=== PATIENT | male | born 1950 | race Caucasian/White ===

== ENCOUNTER 2017-08-01 12:49 | Outpatient (CLI) | payer MEDICARE, OTHER ==
[2015-08-21 20:21] VITALS: BP 150/75
[2017-08-01 13:05] LABS: BASOPHILS % 0.6 (0.0-1.5); EOSINOPHILS % 2.9 % (0.0-6.8); MEAN CORPUSCULAR HEMOGLOBIN 29.8 pg (28.0-34.0); MEAN CORPUSCULAR VOLUME 88.5 fl (80.0-100.0); MONOCYTES % 5.1 % (0.0-11.0); NEUTROPHILS # 4.2 # k/uL (1.4-7.7)
[2017-08-01 13:08] LABS: APPEARANCE,URINE Clear (CLEAR); COLOR,URINE Yellow (YELLOW); OCCULT BLOOD,URINE 2+ (NEGATIVE)
[2017-08-01 23:11] LABS: TOTAL PROTEIN 6.5 g/dL (6.0-8.5)
== END 2017-08-01 12:50 ==
LOC: LAB 12:49
PROVIDERS: ATTEND Nurse Practitioner
DX: R26.9 Unspecified abnormalities of gait and mobility (principal); R32 Unspecified urinary incontinence
CPT/HCPCS: 36415; 80053; 81002; 85025

== ENCOUNTER 2018-03-06 15:38 | Outpatient (CLI) | payer MEDICARE, OTHER ==
[2015-08-21 20:21] VITALS: BP 150/75
[2018-03-06 16:06] LABS: BASOPHILS % 0.2 (0.0-1.5); EOSINOPHILS % 1.5 % (0.0-6.8); MEAN CORPUSCULAR HEMOGLOBIN 30.3 pg (28.0-34.0); MEAN CORPUSCULAR VOLUME 91.6 fl (80.0-100.0); MONOCYTES % 3.6 % (0.0-11.0); NEUTROPHILS # 6.4 # k/uL (1.4-7.7)
[2018-03-06 16:24] LABS: eGFR (African) > 60; eGFR (Non-African) > 60
[2018-03-07 08:12] LABS: APPEARANCE,URINE Clear (CLEAR); COLOR,URINE Yellow (YELLOW); OCCULT BLOOD,URINE Negative (NEGATIVE)
== END 2018-03-06 15:40 ==
LOC: LAB 15:38
PROVIDERS: ATTEND Family Medicine
DX: Z51.81 Encounter for therapeutic drug level monitoring (principal); R39.11 Hesitancy of micturition
CPT/HCPCS: 36415; 80053; 81002; 85025

== ENCOUNTER 2018-04-10 11:53 | Emergency (ER) | payer MEDICARE, OTHER ==
[2018-04-10 12:12] VITALS: BP 94/47
--- NOTE | 2018-04-10 12:29 | ED Physician Documentation ---
General Adult - HISTORIAN Historian: patient, spouse - HPI Stated Complaint: Bilat LE Swelling Chief Complaint: General Adult Onset: other (weeks) Timing: still present Severity: moderate Further Comments: yes (Pt is a 68 yo male with Parkinson's dz with c/o b/l LE edema for 3 weeks. Pt also has been having loose bm's and some abd bloating but no significant abd pain or n/v. No fever. Pt had been seen in clinic and at [facility] recently about leg swelling and was rx'd po lasix which did not seem to help to much, and so the pt stopped taking it. Pt had also been using oxybutynin 5 mg tid, but recently had this reduced to qd.) - ROS CONST: weakness EYES/ENT: none CVS/RESP: none GI/: diarrhea, other (abd bloating) MS/SKIN/LYMPH: leg swelling - PAST HX Past History: other (Parkinson's dz) Allergies/Adverse Reactions: Allergies Allergy/AdvReac Type Severity Reaction Status Date / Time Penicillins Allergy Verified 04/10/18 12:04 Home Medications: Ambulatory Orders Medication Instructions Recorded Ropinirole HCl [Requip] 10 mg PO D 08/21/15 Carbidopa/Levodopa [Carbidopa-Levo 2 each PO QID u2 03/06/18 25-100 Mg Odt] Rasagiline Mesylate [Azilect] 1 mg PO DAILY u2 03/06/18 - SOCIAL HX Smoking History: non-smoker - FAMILY HX Family History: No - VITAL SIGNS Vital Signs: Vital Signs Temp Pulse Resp BP Pulse Ox 98.5 F 67 17 94/47 99 04/10/18 11:55 04/10/18 11:55 04/10/18 11:55 04/10/18 11:55 04/10/18 11:55 - REVIEWED ASSESSMENTS Nursing Assessment Reviewed: Yes Vitals Reviewed: Yes Progress - Progress Progress: NS 500 cc IVF Lasix 20 mg IV abd x-ray: Findings: 2 views obtained of the abdomen. No abnormal dilation of the small bowel. Air and stool throughout the large bowel. No suspicious calcification projecting over the renal fossa or the lower pelvic region. Osseous structures are appropriate for age. Impression: Significant large bowel stool and air. No suspicious calcifications by plain film sensitivity. Lasix 20 mg IV support hose, laxative, f/u pcp (pt has appt in 2 days). ED Results Lab/Radiology - Orders Orders: ED Orders Category Date Time Status Place IV Lock 1T Care 04/10/18 12:20 Active ABDOMEN 1VIEW [RAD] Stat Exams 04/10/18 Ordered BNP [NT-proBNP] Stat Lab 04/10/18 Ordered CBC/PLATELET/DIFF Routine Lab 04/10/18 Ordered CMP Routine Lab 04/10/18 Ordered UA [URINALYSIS] Routine Lab 04/10/18 Ordered General Adult Physical Exam - PHYSICAL EXAM GENERAL APPEARANCE: mild distress EENT: pharynx normal NECK: normal inspection, supple RESPIRATORY: no resp distress, chest non-tender, breath sounds normal CVS: reg rate & rhythm, heart sounds normal ABDOMEN: soft, non-tender, decreased BS BACK: normal inspection, no CVA tenderness SKIN: warm/dry, normal color EXTREMITIES: edema (2+ LE) NEURO: oriented X3, sensation nml, other (Parkinson's) Discharge Clincal Impression: Leg edema, dehydration Constipation Qualifiers: Constipation type: unspecified constipation type Qualified Code(s): K59.00 - Constipation, unspecified Referrals: Parish Salvador [Primary Care Provider] - Condition: Stable Disposition: 01 HOME, SELF-CARE Decision to Admit: NO Decision Time: 14:30
[2018-04-10 12:37] LABS: BASOPHILS % 0.3 (0.0-1.5); EOSINOPHILS % 0.9 % (0.0-6.8); MEAN CORPUSCULAR HEMOGLOBIN 29.9 pg (28.0-34.0); MEAN CORPUSCULAR VOLUME 92.3 fl (80.0-100.0); NEUTROPHILS # 5.1 # k/uL (1.4-7.7)
[2018-04-10 12:53] LABS: eGFR (African) > 60; eGFR (Non-African) > 60
[2018-04-10] MEDS: 0.9 % SODIUM CHLORIDE 500 ML IV ONE (13:25)
[2018-04-10] MEDS: FUROSEMIDE 20 MG/2 ML VIAL ONE (13:25)
[2018-04-10] MEDS: FUROSEMIDE 20 MG/2 ML VIAL IVP ONE ×2 (13:30→14:31)
[2018-04-10 16:10] LABS: APPEARANCE,URINE CLEAR (CLEAR); COLOR,URINE AMBER (YELLOW); OCCULT BLOOD,URINE TRACE-INTACT (NEGATIVE); PH URINE 5.5 (5.0 - 8.0)
--- NOTE | 2018-04-10 17:36 | Diagnostic Imaging Report ---
HERSON ANDERSON [facility] [address] [facility] [address] [place] [address]. [id number] Report Submission Date: April 10, 2018 1:56:51 PM CDT Patient Study Name: WILBERTO ALEJANDRE Date: April 10, 2018 1:14:45 PM CDT Modality Type: DX Gender: M Description: ABDOMEN : 54 Institution: [facility] Physician: HERSON ANDERSON Examination: Abdomen History: KUB, ABDOMINAL PAIN/ BLOATING, HX OF HERNIA SURGERY (Hx) Findings: 2 views obtained of the abdomen. No abnormal dilation of the small bowel. Air and stool throughout the large bowel. No suspicious calcification projecting over the renal fossa or the lower pelvic region. Osseous structures are appropriate for age. Impression: Significant large bowel stool and air. No suspicious calcifications by plain film sensitivity. Electronically signed on April 10, 2018 1:56:51 PM CDT by: Remy ALVES
== END 2018-04-10 14:35 | disposition home or self-care (01) ==
LOC: ED 11:53
DX: R60.0 Localized edema (principal); E86.0 Dehydration; K59.09 Other constipation
CPT/HCPCS: 74018; 80053; 81002; 83880; 85025; J1940; J7060; 96365; 96375; 99283; S1016

== ENCOUNTER 2018-05-13 09:25 | Day surgery (SDC) | payer MEDICARE, OTHER ==
[2018-05-13] MEDS ORDERED: PROPOFOL 200 MG/20 ML VIAL IV ONE (09:26)
[2018-05-13] MEDS ORDERED: LACTATED RINGERS 1,000 ML IV.SOLN IV ONE (09:26)
[2018-05-13] MEDS ORDERED: LIDOCAINE HCL/PF 2% 100 MG/5 ML VIAL IJ ONE (09:26)
--- NOTE | 2018-05-17 09:48 | GI Report ---
REFERRING PHYSICIAN: Dr. Kenny Miranda PSYCHOLOGICAL TESTS SALES AGENT: Paul Navarro MD PROCEDURE MEDICATION: Propofol as per anesthesia. INDICATIONS: This is a 68-year-old man with severe Parkinson's disease, difficulty passing stools, and a family history of colon cancer. He had polyps removed about [address] Augustin here. Patient was not sure how well he did with his prep. He is a chronically ill-appearing man. On examination, he does have a large ventral hernia and diastasis recti. He does have peripheral edema. A rectal exam was done and the patient has a hard-ball size impaction of stool in the rectum. I digitally broke it up into a number of pieces. The colonoscope was not even attempted because there was solid stool there. PROCEDURE PERFORMED: Colonoscopy attempt. FINDINGS: Large rectal impaction. No colonoscopy was attempted. It was digitally broken up. We will give him a Fleet enema and have him take MiraLAX twice daily and re-prep him for a colonoscopy later this month. RECOMMENDATIONS: We will give him a Fleet enema and see if we can clear that out and then keep him on MiraLAX twice daily and reschedule him for when we return to hopefully look at his colon at that point. cc: Dr. Kenny ALVES
== END 2018-05-13 09:26 ==
LOC: OPSURG 09:25
PROVIDERS: ATTEND Internal Medicine Gastroenterology
DX: K56.41 Fecal impaction (principal); G20 Parkinson's disease
CPT/HCPCS: 45378; J2001; J2704; J7120; S1016

== ENCOUNTER 2018-07-08 12:23 | Outpatient (CLI) | payer MEDICARE, OTHER ==
[2018-07-08 13:25] LABS: BASOPHILS % 0.3 (0.0-1.5); EOSINOPHILS % 0.8 % (0.0-6.8); MEAN CORPUSCULAR HEMOGLOBIN 30.7 pg (28.0-34.0); MONOCYTES % 3.6 % (0.0-11.0); NEUTROPHILS # 3.6 # k/uL (1.4-7.7)
[2018-07-08 13:26] LABS: eGFR (African) > 60; eGFR (Non-African) > 60
== END 2018-07-08 12:24 ==
LOC: LAB 12:23
PROVIDERS: ATTEND Family Medicine
DX: E88.09 Other disorders of plasma-protein metabolism, not elsewhere classified (principal); D63.8 Anemia in other chronic diseases classified elsewhere; R63.4 Abnormal weight loss; R06.09 Other forms of dyspnea; K59.00 Constipation, unspecified
CPT/HCPCS: 36415; 80053; 84443; 85025

== ENCOUNTER 2018-07-09 09:06 | Outpatient (CLI) | payer MEDICARE, OTHER ==
--- NOTE | 2018-07-09 13:38 | Diagnostic Imaging Report ---
ISABELLE AVILA [facility] [address] [facility] [address] [address] Report Submission Date: Jul 09, 2018 9:46:50 AM CDT Patient Study Name: WILBERTO ALEJANDRE Date: Jul 09, 2018 9:15:57 AM CDT Modality Type: DX Gender: M Description: CHEST : 54 Institution: [facility] Physician: ISABELLE AVILA Examination: PA and lateral chest. History: DYSPNEA ON EXERTION AND WEIGHT LOSS (Hx) Comparison exam: None provided. Findings: PA and lateral views of the chest demonstrates a normal cardiac and mediastinal silhouette. No focal infiltrate. No blunting of the costophrenic margins. Hilar granuloma. Osseous structures are appropriate for age. Impression: No acute pulmonary process. Electronically signed on Jul 09, 2018 9:46:50 AM CDT by: Remy ALVES
--- NOTE | 2018-07-09 16:30 | Diagnostic Imaging Report ---
ISABELLE AVILA [facility] [address] [facility] [address] [place] [address]. [address] Report Submission Date: Jul 09, 2018 2:04:13 PM CDT Patient Study Name: WILBERTO ALEJANDRE Date: Jul 09, 2018 10:02:29 AM CDT Modality Type: CT\SR Gender: M Description: CT ABD PELVIS W/ CON : 54 Institution: [facility] Physician: ISABELLE AVILA Examination: CT Abdomen/pelvis History: OBSTIPATION; 27 LB WEIGHT LOSS IN 4 MONTHS (Hx) Comparison exams: None available Technique: CT Abdomen/pelvis with IV protocol. Findings: Liver, spleen, adrenals, pancreas, and gallbladder are without gross irregularity. No abnormal enhancement. Left calyceal calcifications. Renal cortical and exophytic cysts bilaterally. Abdominal aorta demonstrates peripheral atherosclerotic disease. No aneurysm. Cardiac silhouette not enlarged. No pericardial effusion. Diffuse mesenteric stranding limiting bowel differentiation. Significant stool throughout the entire large bowel. Small bowel difficult to visualize but does not appear to be abnormally dilated. Likely lower pelvic free fluid. Pelvic phleboliths. Anterior abdominal wall surgical changes. Osseous structures demonstrate degenerative changes. Lung bases dentate dependent scarring and atelectasis. No effusion. Impression: Diffuse abdominal mesenteric stranding and likely free fluid. Significant large bowel stool - constipation. Given history, recommend dedicated bowel imaging to better evaluate. A mesenteric lesion/abnormality cannot be excluded. Correlation with any pertinent medical/ surgical history is recommended. If there still remains significant concern for neoplastic process, consider PET scan imaging to further evaluate. Left renal nephrolithiasis. Lung base scarring without focal consolidation or effusion Electronically signed on Jul 09, 2018 2:04:13 PM CDT by: Remy ALVES
== END 2018-07-09 09:08 ==
LOC: RAD 09:06
PROVIDERS: ATTEND Family Medicine
DX: R06.09 Other forms of dyspnea (principal); K59.00 Constipation, unspecified
CPT/HCPCS: 71046; 74177; Q9967

== ENCOUNTER 2019-09-05 11:43 | Emergency (ER) | payer MEDICARE, OTHER ==
--- NOTE | 2019-09-05 11:50 | ED Physician Documentation ---
General Adult - HISTORIAN Historian: patient - HPI Stated Complaint: weakness and fall a week ago with low back pain Chief Complaint: Weakness Onset: days ago (7) Timing: persistent since Severity: moderate Further Comments: yes (Per his he always is dealing with constipation. She notes a few days she noticed he had diarrhea and she feels this is due to his consitpation. She also states over a week ago he fell and has had complaints of low back and coccyx pain. She also is concerned about several other areas - ie skin areas were removed several weeks ago and she is concerned if they are doing ok. He has a history of Parkinson's and he does see neurology) - ROS CONST: no problems GI/: denies: abdominal pain, vomiting, nausea MS/SKIN/LYMPH: none NEURO/PSYCH: denies: headache, dizziness, difficulty with speech - PAST HX Past History: other (Parkinsons ) Immunizations: UTD Allergies/Adverse Reactions: Allergies Allergy/AdvReac Type Severity Reaction Status Date / Time Penicillins Allergy Verified 09/05/19 12:06 Home Medications: Ambulatory Orders Medication Instructions Recorded Ropinirole HCl [Requip] 10 mg PO D 08/21/15 Carbidopa/Levodopa [Carbidopa-Levo 2 each PO QID u2 03/06/18 25-100 Mg Odt] Rasagiline Mesylate [Azilect] 1 mg PO DAILY u2 03/06/18 - SOCIAL HX Smoking History: non-smoker - FAMILY HX Family History: No - VITAL SIGNS Vital Signs: Vital Signs Temp Pulse Resp BP Pulse Ox 94/47 04/10/18 14:35 - REVIEWED ASSESSMENTS Nursing Assessment Reviewed: Yes Vitals Reviewed: Yes Progress - Progress Progress: 1400: Discussed results and plan DG General Adult Physical Exam - PHYSICAL EXAM GENERAL APPEARANCE: no distress EENT: eye inspection normal, no signs of dehydration RESPIRATORY: no resp distress, chest non-tender, breath sounds normal CVS: reg rate & rhythm, heart sounds normal, no murmur ABDOMEN: abnormal bowel sounds (hypoactive ), distended. No: tenderness, guarding RECTAL: other (open area on coccyx 1 cm open area no drainage ) BACK: normal inspection SKIN: warm/dry, normal color EXTREMITIES: non-tender, normal range of motion, no evidence of injury, no edema NEURO: oriented X3 Discharge Clincal Impression: Constipation Qualifiers: Constipation type: other constipation type Qualified Code(s): K59.09 - Other constipation Referrals: Kenny Miranda MD [Primary Care Provider] - 2 Days Comments: 1. Call PCP and discuss med changes 2. Increase fluids and fiber 3. Mag Citrate 1/2 bottle now and 1/2 bottle in two hours if no results 4. Return to ER for any increased concerns Condition: Stable Disposition: 01 HOME, SELF-CARE Decision to Admit: NO Date of Decison to Admit: 09/05/19 Decision Time: 14:17
[2019-09-05] MEDS ORDERED: 0.9 % SODIUM CHLORIDE 1,000 ML IV ONE (12:06)
[2019-09-05 12:26] LABS: BASOPHILS % 0.3 % (0.0-1.5); NEUTROPHILS # 7.6 # k/uL (1.4-7.7)
[2019-09-05 12:44] LABS: eGFR (Non-African) > 60
--- NOTE | 2019-09-05 13:19 | Diagnostic Imaging Report ---
PATIENT MR#: [id number] PATIENT PATIENT NAME: WILBERTO ALEJANDRE DATE OF : 1950 REFERRING PHYSICIAN: Ramonita Ty EXAM DATE: 09/05/2019 ACCESSION NUMBER: [id number] EXAM DESCRIPTION: PELVIS AP 1 OR 2 VIEWS Indication: Pain status post fall one week ago. Technique: Single AP view of the pelvis was obtained. Comparison: None available. Findings: There is diffuse osteopenia. There is no fracture or dislocation of the pelvis. There is moderate joint space narrowing of the bilateral hips. There is a moderate amount of stool seen in the rectum which could represent constipation. Hernia repair material is seen over the left lower pelvis. There are no suspicious ra diopaque foreign bodies over the pelvis. Impression: Diffuse osteopenia with no fracture or dislocation seen of the pelvis. Read by: Dr. Reno Polanco Transcribed by: Reno Polanco Transcribed Date: 09/05/2019 1:17:17 PM Electronically signed by: Dr. Reno Polanco Date signed: 09/05/2019 1:18:33 PM
--- NOTE | 2019-09-05 13:20 | Diagnostic Imaging Report ---
PATIENT MR#: [id number] PATIENT PATIENT NAME: WILBERTO ALEJANDRE DATE OF : 1950 REFERRING PHYSICIAN: Ramonita Ty EXAM DATE: 09/05/2019 ACCESSION NUMBER: [id number] EXAM DESCRIPTION: ABD SERIES PA CHEST HISTORY: ALTERNATING CONSTIPATION X 1 WEEK AND DIARRHEA X 3 DAYS AFTER COMPARISON: CT abdomen July 01, 2018. CHEST AND ABDOMINAL XRAY, 4 FRONTAL VIEWS: Lungs: Calcified right hilar lymph node. The lung manriquez are clear. Bowel gas pattern: The transverse colon is moderately distended with gas. The ascending and descendin g colon are moderately distended with stool. There is a 10 cm rectal stool ball. No evidence of small bowel obstr uction. There is no free air beneath the diaphragms. Calcifications: No findings to suggest nephrolithiasis by x-ray sensitivity. Surgical changes: Left lower quadrant hernia repair coils. Skeleton: Intact. IMPRESSION: Moderate constipation / gassy distention of the proximal colon, with rectal stool impacti on, without evidence of small bowel obstruction at this time. Read by: Dr. Osvaldo Crowley Transcribed by: Osvaldo Crowley Transcribed Date: 09/05/2019 1:19:46 PM Electronically signed by: Dr. Osvaldo Crowley Date signed: 09/05/2019 1:19:46 PM
--- NOTE | 2019-09-05 13:24 | Diagnostic Imaging Report ---
PATIENT MR#: [id number] PATIENT PATIENT NAME: WILBERTO ALEJANDRE DATE OF : 1950 REFERRING PHYSICIAN: Ramonita Ty EXAM DATE: 09/05/2019 ACCESSION NUMBER: [id number] EXAM DESCRIPTION: L SPINE 2 OR 3 VIEWS Indication: Pain status post fall one week ago. Technique: 3 views of the lumbar spine were obtained. Comparison: None available. However, comparison was made to CT of the abdomen and pelvis dated 2017. Findings: There is diffuse osteopenia. The vertebral bodies of the lumbar spine demonstrate normal h eight and alignment. There is mild disc height loss seen at multiple levels in the lumbar spine. There is mil d facet arthrosis bilaterally at L4-5 and L5-S1. The paraspinal soft tissues demonstrate no acute abnormalities. Impression: Diffuse osteopenia with no fracture or acute abnormality of the lumbar spine. Read by: Dr. Reno Polanco Transcribed by: Reno Polanco Transcribed Date: 09/05/2019 1:23:37 PM Electronically signed by: Dr. Reno Polanco Date signed: 09/05/2019 1:24:19 PM
[2019-09-05 14:49] VITALS: BP 150/75
[2019-09-05 15:46] LABS: APPEARANCE,URINE CLOUDY (CLEAR); COLOR,URINE YELLOW (YELLOW); OCCULT BLOOD,URINE NEGATIVE (NEGATIVE); PH URINE 5.5 (5.0 - 8.0)
== END 2019-09-05 14:40 | disposition home or self-care (01) ==
LOC: ED 11:43
DX: K59.09 Other constipation (principal)
CPT/HCPCS: 51701; 72100; 72170; 74022; 80053; 81002; 85025; 96360; 99283; 99284; S1016

== ENCOUNTER 2019-09-13 17:20 | Observation (INO) | payer MEDICARE, OTHER ==
--- NOTE | 2019-09-13 18:03 | Diagnostic Imaging Report ---
PATIENT MR#: [id number] PATIENT PATIENT NAME: WILBERTO AELJANDRE DATE OF : 1950 REFERRING PHYSICIAN: Alesia Martinez EXAM DATE: 09/13/2019 ACCESSION NUMBER: [id number] EXAM DESCRIPTION: ABD SERIES PA CHEST Obstructive series with chest Clinical history and omental pain Technique supine abdomen upright abdomen upright chest Findings: The lung manriquez are clear. There is no free air. Dilated colonic loops extends in the pelvi s up to the hemidiaphragms raising the possibility of sigmoid volvulus versus low obstruction. Air fluid levels a re present in the right colon. CT is recommended. A large amount of retained fecal material is present in the lower col on. Hernia repair changes are notable left lower quadrant. 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 Thoracic aorta i s tortuous and are calcified right paratracheal lymph nodes Impression: No acute infiltrate. T . Dilated colonic loops with feces in the rectum. Considerations are fecal impaction, low obstruction or sigmoid volvulus. Left lower quadrant hernia repair Read by: Dr. Marek Ledesma Transcribed by: Transcribed Date: Electronically signed by: Dr. Marek Ledesma Date signed: 09/13/2019 6:02:56 PM
--- NOTE | 2019-09-13 18:05 | ED Physician Documentation ---
Abdominal Pain - HISTORIAN Historian: patient - HPI Stated Complaint: constipation Chief Complaint: General Adult Additonal Information: 69-year old male presents to the ER with his . Patient was seen in the ER on 09/05/19 and at that time patient had not had a BM in 3 days. During that ER visit "Per his he always is dealing with constipation. She notes a few days she noticed he had diarrhea and she feels this is due to his constipation". Patient has not yet had a BM. She states that he takes 1 tsp of Miralax daily; discussed 1 capful twice a day. Patient is distended and tight- will repeat abdominal series. Patient has had appointment with neurology for Parkinsons and urology for his bladder but has not f/u with PCP. states that patient has been drinking well. No episodes of vomiting. Onset: days ago (10 days ago) Duration: worse Timing: still present Context: denies: out of country travel, bad food Severity: moderate Quality: fullness Associated Symptoms: denies: nausea, vomiting Exacerbated by: nothing Relieved by: nothing - ROS CONST: recent illness GI/: constipation CVS/RESP: none EYES/ENT: none MS/SKIN/LYMPH: none NEURO/PSYCH: none - SOCIAL HX Smoking History: non-smoker Alcohol Use: none Drug Use: none - FAMILY HX Family History: none - PAST HX Past History: other (parkinsons) Ischemic Bowel Risk Factors: none Other History: none Home Medications: Ambulatory Orders Medication Instructions Recorded Ropinirole HCl [Requip] 10 mg PO D 08/21/15 Carbidopa/Levodopa [Carbidopa-Levo 2 each PO QID u2 03/06/18 25-100 Mg Odt] Rasagiline Mesylate [Azilect] 1 mg PO DAILY u2 03/06/18 Allergies/Adverse Reactions: Allergies Allergy/AdvReac Type Severity Reaction Status Date / Time Penicillins Allergy Verified 09/13/19 17:39 - VITAL SIGNS Vital Signs: Vital Signs Temp Pulse Resp BP Pulse Ox 98.8 F 81 20 150/83 95 09/14/19 02:00 09/14/19 05:35 09/14/19 05:35 09/14/19 02:00 09/14/19 05:35 Procedures Progress: Multiple attempts at manual disimpaction from stool in the rectal vault Progress - Progress Progress: 19:30 patient having small results of stool after soap ximena enema; passing gas Stool felt with digital but unable to reach stool to dislodge Patient is drinking on Miralax We will admit patient observation with enemas every 2 hours until moderate results Will repeat KUB in the morning. ED Results Lab/Radiology - Radiology Radiology Impressions: Obstructive series with chest Clinical history and omental pain Technique supine abdomen upright abdomen upright chest Findings: The lung manriquez are clear. There is no free air. Dilated colonic loops extends in the pelvis up to the hemidiaphragms raising the possibility of sigmoid volvulus versus low obstruction. Air fluid levels are present in the right colon. CT is recommended. A large amount of retained fecal material is present in the lower colon. Hernia repair changes are notable left lower quadrant. 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 Thoracic aorta is tortuous and are calcified right paratracheal lymph nodes Impression: No acute infiltrate. T\\ortuous calcified aortic arch . Dilated colonic loops with feces in the rectum. Considerations are fecal impaction, low obstruction or sigmoid volvulus. Left lower quadrant hernia repair Electronically signed on Sep 13, 2019 5:59:45 PM CDT by: Marek Ledesma - Orders Orders: ED Orders Category Date Time Status Place IV Lock 1T Care 09/13/19 18:32 Active Soap Suds Enema [Administer Enema] 1T Care 09/13/19 18:29 Completed Soap Suds Enema [Administer Enema] 1T Care 09/13/19 21:00 Active ABDOMEN WITH PA CHEST [ABD SERIES PA CHEST] [RAD] Stat Exams 09/13/19 Completed 0.9 % Sodium Chloride [Normal Saline] 1,000 ml Med 09/13/19 18:32 Discontinued IV Q1H Metoclopramide HCl [Reglan] Med 09/13/19 18:32 Discontinued 10 mg IVP NOW ONE Polyethylene Glycol 3350 [Miralax] Med 09/13/19 18:49 Discontinued 17 gm .ROUTE .STK-MED ONE Polyethylene Glycol 3350 [Miralax] Med 09/14/19 18:48 Once 17 gm PO NOW ONE Polyethylene Glycol 3350 [Miralax] Med 09/13/19 18:53 Discontinued 51 gm .ROUTE .STK-MED ONE Abdominal Pain Physical Exam - Physical Exam General Appearance: mild distress EENT: eye inspection normal, ENT inspection normal, pharynx normal, KEYANNA, dry mucous membranes NECK: normal inspection RESPIRATORY: breath sounds normal CVS: heart sounds normal ABDOMEN: tenderness, decreased BS, distended RECTAL: other (stool in rectal vault) BACK: normal inspection SKIN: warm/dry, normal color EXTREMITIES: no evidence of injury NEURO: oriented X3, CN's nml as tested, sensation nml, cognition normal Vital Signs: Vital Signs Temp Pulse Resp BP Pulse Ox 98.8 F 81 20 150/83 95 09/14/19 02:00 09/14/19 05:35 09/14/19 05:35 09/14/19 02:00 09/14/19 05:35 Discharge Clincal Impression: Constipation Comments: Will admit patient observation for severe constipation Will order Enemas every 2 hours until result of stools Continue drinking Miralax Condition: Good Decision to Admit: [id number] Date of Decison to Admit: 09/13/19 Decision Time: 19:30
[2019-09-13] MEDS ORDERED: METOCLOPRAMIDE HCL 10 MG/2 ML VIAL IVP ONE (18:32)
[2019-09-13] MEDS ORDERED: 0.9 % SODIUM CHLORIDE 1,000 ML IV ONE (18:32)
[2019-09-13] MEDS ORDERED: POLYETHYLENE GLYCOL 3350 17 GM POWD.PACK ONE ×2 (18:49→18:53)
[2019-09-13] MEDS ORDERED: ONDANSETRON HCL/PF 4 MG/ 2ML VIAL IVP PRN (19:33)
[2019-09-13 20:00] VITALS: BMI 23.7
[2019-09-13] MEDS: 0.9 % SODIUM CHLORIDE 1,000 ML IV SCH (20:10)
[2019-09-14] MEDS: 0.9 % SODIUM CHLORIDE 1,000 ML IV SCH (05:16)
--- NOTE | 2019-09-14 06:20 | Diagnostic Imaging Report ---
PATIENT MR#: [id number] PATIENT PATIENT NAME: WILBERTO ALEJANDRE DATE OF : 1950 REFERRING PHYSICIAN: Alesia Martinez EXAM DATE: 09/14/2019 ACCESSION NUMBER: [id number] EXAM DESCRIPTION: ABDOMEN 1VIEW Supine abdomen History: Constipation Findings: Surgical clips superimpose the left lower quadrant. Bowel gas pattern is normal. There is n o obstruction. Impression: Normal bowel gas pattern. Read by: Dr. Chris Vizcaino Transcribed by: Transcribed Date: Electronically signed by: Dr. Chris Vizcaino Date signed: 09/14/2019 6:20:02 AM
--- NOTE | 2019-09-14 06:34 | Discharge Summary ---
Discharge Summary - Discharge [facility] Admission Date: 09/13/19 Discharge Date: 09/14/19 Discharge To: Home History of Present Illness: 69-year old male presents to the ER with his . Patient was seen in the ER on 09/05/19 and at that time patient had not had a BM in 3 days. During that ER visit "Per his he always is dealing with constipation. She notes a few days she noticed he had diarrhea and she feels this is due to his constipation". Patient has not yet had a BM. She states that he takes 1 tsp of Miralax daily; discussed 1 capful twice a day. Patient is distended and tight- will repeat abdominal series. Patient has had appointment with neurology for Parkinsons and urology for his bladder but has not f/u with PCP. states that patient has been drinking well. No episodes of vomiting. Condition at Discharge: Stable Home Medications: Ambulatory Orders Medication Instructions Recorded Ropinirole HCl [Requip] 10 mg PO D 08/21/15 Carbidopa/Levodopa [Carbidopa-Levo 2 each PO QID u2 03/06/18 25-100 Mg Odt] Rasagiline Mesylate [Azilect] 1 mg PO DAILY u2 03/06/18 Consultations this Visit: None Procedures this Visit: None Allergies/Adverse Reactions: Allergies Allergy/AdvReac Type Severity Reaction Status Date / Time Penicillins Allergy Verified 09/17/19 08:19 Discharge Summary: 69 year old male was admitted for severe constipation without obstruction. Patient was placed in observation care and given enemas every 2 hours along with Miralax PO until results. Patient had several very large bowel movements throughout the night. Repeat KUB shows great improvement. Patient was also give IVF for prevention of dehydration. Patient will be discharged to home with . He is to start taking 1 capful of miralax twice a day. Hospital Course: Enemas every 2 hours, oral Miralax, and IVF - Final Diagnosis (1) Constipation Problems: Resolved Right or Left: Right
[2019-09-14 14:26] VITALS: BP 134/76
[2019-09-14] MEDS ORDERED: POLYETHYLENE GLYCOL 3350 17 GM POWD.PACK PO ONE (18:48)
== END 2019-09-14 12:50 | disposition home or self-care (01) ==
LOC: ED 17:20 → SOUTH 19:20
PROVIDERS: ADMIT Nurse Practitioner Family; ATTEND Nurse Practitioner Family
DX: K59.00 Constipation, unspecified (principal)
CPT/HCPCS: 74018; 74022; 96361; 96374; 96375; 99218; 99282; 99284; G0378; J7030; S1016

== ENCOUNTER 2019-09-17 07:40 | Emergency (ER) | payer MEDICARE, OTHER ==
--- NOTE | 2019-09-17 07:58 | ED Physician Documentation ---
Abdominal Pain - HISTORIAN Historian: patient, other (caregiver) - HPI Stated Complaint: abdominal pain Chief Complaint: Abdominal Pain Additonal Information: Patient presents to ED with severe abdominal pain, 08/21, which started this morning when his son transferred him from the bed to wheelchair. Patient reports he has been unable to urinate since yesterday morning. He was seen on 09/05/19 for weakness and then again on 09/13/19 for constipation (s/p digital dis-impaction) since that time he states he has had difficulty within urination. Onset: hours (24) Duration: constant Timing: still present Context: denies: out of country travel Severity: severe Quality: aching, sharp, fullness Associated Symptoms: nausea. denies: vomiting Exacerbated by: movements, cough Relieved by: supine, remaining still - ROS CONST: no problems GI/: constipation, problems urinating CVS/RESP: denies: shortness of breath EYES/ENT: none MS/SKIN/LYMPH: none NEURO/PSYCH: none - SOCIAL HX Smoking History: non-smoker Alcohol Use: none Drug Use: none - FAMILY HX Family History: none - PAST HX Past History: other (Parkinson disease) Ischemic Bowel Risk Factors: none Other History: fecal impaction Surgeries/Procedures: none Home Medications: Ambulatory Orders Medication Instructions Recorded Ropinirole HCl [Requip] 10 mg PO D 08/21/15 Carbidopa/Levodopa [Carbidopa-Levo 2 each PO QID u2 03/06/18 25-100 Mg Odt] Rasagiline Mesylate [Azilect] 1 mg PO DAILY u2 03/06/18 Allergies/Adverse Reactions: Allergies Allergy/AdvReac Type Severity Reaction Status Date / Time Penicillins Allergy Verified 09/17/19 08:19 - VITAL SIGNS Vital Signs: Vital Signs Temp Pulse Resp BP Pulse Ox 99.4 F 98 H 30 H 112/54 89 L 09/17/19 07:40 09/17/19 10:16 09/17/19 10:16 09/17/19 10:16 09/17/19 10:16 - REVIEWED ASSESSMENTS Nursing Assessment Reviewed: Yes Vitals Reviewed: Yes Progress - Progress Progress: 0805 Sim catheter placed with gross hematuria present. [address] scan ordered with contrast. Radiology ok with contrast based on Cr 0.86 on 09/05/19 0900 Lab results reveal Cr 7.06. In setting of IV contrast administration, will give 2 liters NS bolus. Renal function will need close monitoring. 09 Blood cultures obtained. Rocephin 1 g IV ordered. 09 called [facility] for transfer. They have no beds available 0936 Called [facility] for transfer. They are on pulm and IM hold. Will try to find admitting service. Awaiting call back. [phone] Michelle Zurita, will accept patient, however, would like the transfer to ER for further evaluation. ED Results Lab/Radiology - Lab Results Lab Results: Lab Results 09/17/19 09/17/19 09/17/19 08:10 08:10 08:10 WBC 12.00 K/ul K/ul (4.00-12.00) RBC 4.29 M/ul M/ul (3.90-5.20) Hgb 12.6 g/dL g/dL (12.0-18.0) Hct 38.6 % % (37.0-53.0) MCV 90.0 fl fl (80.0-100.0) MCH 29.5 pg pg (28.0-34.0) MCHC 32.7 g/dL g/dL (30.0-36.0) RDW 11.6 % % (11.3-14.3) Plt Count 332 K/mm3 K/mm3 (130-400) Neut % (Auto) 75.6 % % (39.0-79.0) Lymph % (Auto) 14.7 % L % (16.0-50.0) [place] % (Auto) 4.9 % % (0.0-11.0) Eos % (Auto) 4.4 % % (0.0-6.8) Baso % (Auto) 0.4 % % (0.0-1.5) Neut # (Auto) 9.1 # k/uL H # k/uL (1.4-7.7) Lymph # (Auto) 1.8 # k/uL # k/uL (0.6-4.0) [place] # (Auto) 0.6 # k/uL # k/uL (0.0-0.9) Eos # (Auto) 0.5 # k/uL # k/uL (0.0-0.6) Baso # (Auto) 0.1 # k/uL # k/uL (0.0-0.5) Sodium 143 mmol/L mmol/L (137-145) Potassium 5.2 mmol/L H mmol/L (3.5-5.1) Chloride 105 mmol/L mmol/L (98-107) Carbon Dioxide 21 mmol/L L mmol/L (22-30) Anion Gap 22.2 BUN 63 mg/dL H mg/dL (9-20) Creatinine 7.06 mg/dL H mg/dL (0.66-1.25) Estimated Creat Clear 10 Est GFR ( Amer) 10 L (60 - ) Est GFR (Non-Af Amer) 8 L (60 - ) Glucose 176 mg/dL H mg/dL (74-106) Calcium 10.1 mg/dL mg/dL (8.4-10.2) Total Bilirubin 1.1 mg/dL mg/dL (0.2-1.3) AST 36 U/L U/L (15-46) ALT 8 U/L U/L (0-50) Alkaline Phosphatase 123 U/L U/L (38-126) Total Protein 8.2 g/dL g/dL (6.3-8.2) Albumin 4.5 g/dL g/dL (3.5-5.0) Urine Color Brown (YELLOW) Urine Appearance Turbid (CLEAR) Urine pH 6.5 (5.0 - 8.0) Ur Specific [place] 1.025 (1.010-1.030) Urine Protein 3+ mg/dL H mg/dL (NEGATIVE) Urine Ketones Trace mg/dL H mg/dL (NEGATIVE) Urine Occult Blood 3+ H (NEGATIVE) Urine Nitrite Negative (NEGATIVE) Urine Bilirubin Negative (NEGATIVE) Urine Urobilinogen 0.2 Eu Eu (0.2-1.0) Ur Leukocyte Esterase Trace H (NEGATIVE) Urine RBC >100 H (0-2 HPF) Urine WBC 10-25 H (0-5 HPF) Ur Squamous Epith Cells Few (NEG-FEW) Urine Bacteria Moderate H (NEGATIVE) Urine Glucose Negative mg/dL mg/dL (NEGATIVE) - Radiology Radiology Impressions: Report Submission Date: Sep 17, 2019 9:07:49 AM [employer] Patient Study Name: WILBERTO ALEJANDRE Date: Sep 17, 2019 8:30:36 AM [employer] Modality Type: CT\SR Gender: M Description: CT ABD PELVIS W/ CON : 54 Institution: [facility] Physician: SONALI BARBOSA Exam: CT abdomen pelvis with contrast. History: Lower abdominal pain. Axial images through the abdomen and pelvis after IV infusion of 90 cc Omnipaque is submitted along with sagittal and coronal reformatted images. The examination is compared to study dated July 09, 2018. Patchy infiltrates in the posterior lower lung manriquez bilaterally have developed in the interval. A moderate size hiatal hernia is identified. No free intraperitoneal air is identified. A Large amount of ascites throughout the abdomen is noted. The gallbladder is distended without stones. The liver is normal in attenuation and enhancement. Punctate calcifications are associated with the spleen. The pancreas appears normal in attenuation and enhancement. The adrenal glands are not well visualized. The abdominal aorta is of normal caliber and associated with atherosclerotic plaque. There is redemonstration of bilateral renal cysts. Left-sided hydronephrosis is identified . A 5 mm stone in the lower pole of the left kidney is identified. The larger of the previously noted stones in the left kidney is no longer identified on this study. Some distended loops of small bowel throughout the abdomen is noted. Extremely large amount of retained fecal material throughout the colon is noted. Degenerate changes throughout the lumbar spine and in the hips are identified. Impression: Patchy linear infiltrates in the lower lung manriquez bilaterally. a large amount of ascites throughout the abdomen is noted. Bilateral renal cysts. Left-sided hydronephrosis. Several small stones are associated with the left kidney the largest measuring 5 mm. A larger stone was noted previously in the left kidney but is not identified on this study. Extremely large amount of retained fecal material throughout the colon is noted. Electronically signed on Sep 17, 2019 9:07:49 AM [employer] by: Salvador Ramírez - Orders Orders: ED Orders Category Date Time Status Continuous EKG monitoring Q30M Care 09/17/19 08:[address] IV Lock 1T Care 09/17/19 07:52 Active Urinary catheterization 1T Care 09/17/19 07:[address] ABD & PELVIS W/ CON Stat Exams 09/17/19 Completed BLOOD CULTURE Stat Lab 09/17/19 09:30 Received CBC/PLATELET/DIFF Routine Lab 09/17/19 08:10 Completed CMP [CMP] Routine Lab 09/17/19 08:10 Completed UA W/MICRO IF INDICATED Routine Lab 09/17/19 08:10 Completed URINE CULTURE Routine Lab 09/17/19 08:10 Received 0.9 % Sodium Chloride [Normal Saline] 1,000 ml Med 09/17/19 08:17 Discontinued IV .STK-MED 0.9 % Sodium Chloride [Normal Saline] 1,000 ml Med 09/17/19 08:19 Discontinued IV Q1H 0.9 % Sodium Chloride [Normal Saline] 1,000 ml Med 09/17/19 08:55 Discontinued IV Q1H HYDROmorphone HCL/PF [Dilaudid] Med 09/17/19 09:21 Discontinued 1 mg IVP NOW ONE Ipratropium/Albuterol Sulfate [Duoneb] Med 09/17/19 09:27 Discontinued 3 ml NEB NOW ONE Morphine Sulfate Med 09/17/19 08:16 Discontinued 4 mg IV NOW ONE Ondansetron HCl/Pf [Zofran] Med 09/17/19 08:17 Discontinued 4 mg .ROUTE .STK-MED ONE Ondansetron HCl/Pf [Zofran] Med 09/17/19 08:19 Discontinued 4 mg IVP NOW ONE Tamsulosin HCl [Flomax] Med 09/17/19 08:55 Discontinued 0.4 mg PO NOW ONE cefTRIAXone SODIUM [Rocephin] 1 gm Med 09/17/19 09:20 Discontinued 0.9 % Sodium Chloride [Normal Saline] 50 ml IV NOW Oxygen Daily Oxygen 09/17/19 08:30 Ordered Abdominal Pain Physical Exam - Physical Exam General Appearance: alert, moderate distress, anxious EENT: [place] NECK: supple, other (incision right lateral neck with sutures present. Well healing) RESPIRATORY: no resp distress, chest non-tender, other (course breath sound bilaterally) CVS: reg rate & rhythm, heart sounds normal ABDOMEN: rigid, tenderness (throughout), absent BS, distended MALE GENITAL: normal genitalia BACK: normal inspection, CVA tenderness (R), CVA tenderness (L) SKIN: warm/dry, normal color EXTREMITIES: non-tender, edema (+2 lower extremity edema bilaterally to knee) NEURO: oriented X3, mood/affect nml Vital Signs: Vital Signs Temp Pulse Resp BP Pulse Ox 99.4 F 98 H 30 H 112/54 89 L 09/17/19 07:40 09/17/19 10:16 09/17/19 10:16 09/17/19 10:16 09/17/19 10:16 Discharge Clincal Impression: Obstipation, Left renal stone, Hydronephrosis, left, Acute cystitis with hematuria, Pulmonary infiltrate Acute renal failure Qualifiers: Acute renal failure type: unspecified Qualified Code(s): N17.9 - Acute kidney failure, unspecified Ascites Qualifiers: Ascites type: other type Qualified Code(s): R18.8 - Other ascites Referrals: Kenny Miranda MD [Primary Care Provider] - 2 Days Additional Instructions: Transfer to [facility] ED for further evaluation, under the direction of Dr. Michelle Zurita. Condition: Fair Disposition: 02 XFER SHT-TRM HOSP Decision to Admit: NO Date of Decison to Admit: 09/17/19 Decision Time: 09:58
[2019-09-17] MEDS: ONDANSETRON HCL/PF 4 MG/ 2ML VIAL IVP ONE (08:20)
[2019-09-17] MEDS: MORPHINE SULFATE 4 MG/ML VIAL IV ONE (08:25)
[2019-09-17] MEDS: 0.9 % SODIUM CHLORIDE 1,000 ML IV ONE ×3 (08:29→09:54)
[2019-09-17] MEDS: ONDANSETRON HCL/PF 4 MG/ 2ML VIAL ONE (08:29)
[2019-09-17 08:33] LABS: APPEARANCE,URINE TURBID (CLEAR); COLOR,URINE BROWN (YELLOW); OCCULT BLOOD,URINE 3+ (NEGATIVE); PH URINE 6.5 (5.0 - 8.0); UROBILINOGEN URINE 0.2 Eu (0.2-1.0)
[2019-09-17 09:00] LABS: BASOPHILS % 0.4 % (0.0-1.5); NEUTROPHILS # 9.1 # k/uL (1.4-7.7)
--- NOTE | 2019-09-17 09:12 | Diagnostic Imaging Report ---
PATIENT MR#: [id number] PATIENT PATIENT NAME: WILBERTO ALEJANDRE DATE OF : 1950 REFERRING PHYSICIAN: Janette Howe EXAM DATE: 09/17/2019 ACCESSION NUMBER: [id number] EXAM DESCRIPTION: CT ABD PELVIS W/ CON Exam: CT abdomen pelvis with contrast. History: Lower abdominal pain. Axial images through the abdomen and pelvis after IV infusion of 90 cc Omnipaque is submitted along w ith sagittal and coronal reformatted images. The examination is compared to study dated July 09, 2018. Patchy infiltrates in the posterior lower lung manriquez bilaterally have developed in the interval. A moderate size hiatal hernia is identified. No free intraperitoneal air is identified. A Large amount of ascites throughout the abdomen is noted. The gallbladder is distended without st ones. The liver is normal in attenuation and enhancement. Punctate calcifications are associated with the spleen. The pancreas appears normal in attenuation and enhancement. The adrenal glands are not well visualized. The abdominal ao rta is of normal caliber and associated with atherosclerotic plaque. There is redemonstration of bilateral renal cysts. Left-sided hydronephrosis is identified . A 5 mm stone in the lower pole of the left kidney is identified. The larger of the previously noted stones in the left kidney is no longer identified on this study. Some distended loops of small bowel throughout the abdomen is noted. Extremely large amount of retai kyra fecal material throughout the colon is noted. Degenerate changes throughout the lumbar spine and in the hips are identified. Impression: Patchy linear infiltrates in the lower lung manriquez bilaterally. a large amount of ascites throughout the abdomen is noted. Bilateral renal cysts. Left-sided hydronephrosis. Several small stones are associated with the left kidney the largest measuring 5 mm. A larger stone was noted previously in the left kidney but is not identified on this study. Extremely large amount of retained fecal material throughout the colon is noted. Read by: Dr. Salvador Abdullahi Transcribed by: Transcribed Date: Electronically signed by: Dr. Salvador Abdullahi Date signed: 09/17/2019 9:11:25 AM
[2019-09-17] MEDS: HYDROmorphone HCL/PF 1 MG/ML VIAL IVP ONE (09:30)
[2019-09-17] MEDS: TAMSULOSIN HCL 0.4 MG CAP.ER.24H PO ONE (09:35)
[2019-09-17] MEDS: cefTRIAXone SODIUM 1 GM in 0.9 % SODIUM CHLORIDE 50 ML IV ONE (09:40)
[2019-09-17] MEDS: IPRATROPIUM/ALBUTEROL SULFATE 3 ML AMPUL.NEB NEB ONE (09:56)
[2019-09-17 10:27] VITALS: BP 112/54
== END 2019-09-17 10:27 | disposition short-term general hospital (02) ==
LOC: ED 07:40
DX: N13.2 Hydronephrosis with renal and ureteral calculous obstruction (principal); N17.9 Acute kidney failure, unspecified; N30.01 Acute cystitis with hematuria; K59.00 Constipation, unspecified
CPT/HCPCS: 51702; 74177; 80053; 81002; 85025; 87040; 87086; 94640; 96361; 96374; 96375; 99284; J0696; J1170; J2270; J2405; J7030; Q9967; S1016